=== PATIENT | male | born 1940 | race Caucasian/White ===

== ENCOUNTER 2022-03-03 15:20 | Outpatient (CLI) | payer MEDICARE, SELFPAY | END 2022-03-03 15:21 | disposition home or self-care (01) | PROVIDERS: PCP Hospitalist; Visit Provider Specialist | DX: C44.229 Squamous cell carcinoma of skin of left ear and external auricular canal (principal) | CPT/HCPCS: 88305 ==

== ENCOUNTER 2023-02-09 15:40 | Outpatient (CLI) | payer MEDICARE, SELFPAY | END 2023-02-09 15:41 | disposition home or self-care (01) | LOC: CHSLAB 15:44 | PROVIDERS: PCP Hospitalist; Visit Provider Specialist | DX: C44.629 Squamous cell carcinoma of skin of left upper limb, including shoulder (principal) | CPT/HCPCS: 88305 ==